=== PATIENT | male | born 1960 | race Two or more races ===

== ENCOUNTER 2020-09-29 18:57 | Inpatient (IN) | payer MEDICAID, OTHER ==
[~2020-09-29] VITALS: Ht 182.9 cm; Wt 74.4 kg
[2020-09-29] MEDS ORDERED: ASPirin 81 mg TAB PO ONE (19:15)
[2020-09-29 19:43] LABS: Basophils # (auto) 0.1 10 ^3/uL (0-0.2); Basophils % (auto) 0.7 % (0.0-2.0); Eosinophils # (auto) 0 10 ^3/uL (0-0.8); Eosinophils % (auto) 0.1 % (0.0-7.0); Hematocrit 46.2 % (41.0-53.0); Hemoglobin 16.5 g/dL (13.5-17.5); Lymphocytes # (auto) 1.4 10 ^3/uL (0.4-5.4); Mean Corpuscular Hgb Conc. 35.6 g/dL (32.0-36.0); Mean Corpuscular Volume 89.8 fL (80.0-100.0); Monocytes # (auto) 0.6 10 ^3/uL (0-1.3); Monocytes % (auto) 5.8 % (0.0-12.0); Neutrophils # (auto) 8.4 10 ^3/uL (1.6-8.6); Neutrophils % (auto) 80.4 % (37.0-80.0); Nucleated Red Blood Cells % 2.5 %; Platelet Count (auto) 205 10^3/uL (140-450); Red Blood Cells 5.14 10^6/uL (4.5-5.90); Red Cell Distribution Width 12.9 % (11.8-14.3); White Blood Cell 10.5 10^3/uL (4.4-10.8)
[2020-09-29] MEDS ORDERED: IOHEXOL 300 MG/ML 100ML BOTTLE IJ ONE (19:54)
[2020-09-29 19:59] LABS: Albumin 3.8 g/dL (3.4-5.0); Anion Gap 13 (5-15); Blood Urea Nitrogen 15 mg/dL (7-18); Calcium 9.4 mg/dL (8.5-10.1); Carbon Dioxide 23 mmol/L (21-32); Chloride 96 mmol/L (98-107); Glucose 368 mg/dL (74-106); Potassium 3.6 mmol/L (3.5-5.1); Sodium 132 mmol/L (136-145)
[2020-09-29 20:07] LABS: Alanine Aminotransferase 63 U/L (16-61); Alkaline Phosphatase 85 U/L (45-117); Aspartate Aminotransferase 28 U/L (15-37); BUN/Creatinine Ratio 17.9; Bilirubin, Total 0.7 mg/dL (0.2-1.0); GFR African American 119 mL/min; GFR Non-African American 99 mL/min
[2020-09-29 20:36] LABS: Partial Thromboplastin Time 28.9 sec (23.0-31.2)
[2020-09-29] MEDS ORDERED: ONDANSETRON HCL 4 MG/2 ML VIAL IV PRN (22:00)
[2020-09-29] MEDS ORDERED: TEMAZEPAM 15 MG CAP PO PRN (22:00)
[2020-09-29] MEDS ORDERED: hydrALAZINE HCL 20 MG/ML VL IV ONE (22:00)
[2020-09-29] MEDS ORDERED: DEXTROSE (50%) 50ML SYRG IV PRN (22:00)
[2020-09-29] MEDS ORDERED: cloNIDine HCL 0.1 MG TAB PO PRN (22:00)
[2020-09-29] MEDS ORDERED: MORPHINE SULF INJ 2 MG/ML SYRINGE 1ML IV PRN (22:00)
[2020-09-29] MEDS ORDERED: NITROGLYCERIN 0.4 MG SL TAB SL PRN (22:00)
[2020-09-29] MEDS: FAMOTIDINE 20 MG TAB PO SCH (22:32)
[2020-09-29] MEDS: ATORVASTATIN 20 MG TAB PO SCH (22:33)
[2020-09-29] MEDS: ACETAMINOPHEN 325 MG TAB PO PRN (23:46)
[2020-09-30] MEDS: ACCU-CHEK COMFORT CURVE STRIP VI SCH ×6 (00:19→20:17)
[2020-09-30] MEDS: InsuLIN REG 1unit/0.01ml Soln (100units/ml) SC SCH ×6 (00:22→20:16)
[2020-09-30 04:43] VITALS: BP 148/73
[2020-09-30] MEDS ORDERED: HYDROcodone-ACET 5/325MG TAB PO ONE (06:15)
[2020-09-30 06:30] LABS: Potassium 3.6 mmol/L (3.5-5.1)
[2020-09-30 06:34] LABS: BUN/Creatinine Ratio 19.4; Calcium 8.8 mg/dL (8.5-10.1)
[2020-09-30 06:36] LABS: Basophils # (auto) 0 10 ^3/uL (0-0.2); Basophils % (auto) 0.3 % (0.0-2.0); Eosinophils # (auto) 0 10 ^3/uL (0-0.8); Hematocrit 44.3 % (41.0-53.0); Hemoglobin 15.5 g/dL (13.5-17.5); Lymphocytes # (auto) 1.3 10 ^3/uL (0.4-5.4); Lymphocytes % (auto) 11.1 % (10.0-50.0); Mean Corpuscular Hemoglobin 31.4 pg (28.0-32.0); Mean Corpuscular Volume 89.7 fL (80.0-100.0); Monocytes # (auto) 0.7 10 ^3/uL (0-1.3); Monocytes % (auto) 5.7 % (0.0-12.0); Neutrophils # (auto) 9.7 10 ^3/uL (1.6-8.6); Neutrophils % (auto) 82.9 % (37.0-80.0); Nucleated Red Blood Cells % 0.2 %; Platelet Count (auto) 204 10^3/uL (140-450); Red Blood Cells 4.94 10^6/uL (4.5-5.90); Red Cell Distribution Width 12.7 % (11.8-14.3); White Blood Cell 11.7 10^3/uL (4.4-10.8)
[2020-09-30] MEDS: amLODIPine BESYLATE 5 MG TAB PO SCH (09:25)
[2020-09-30] MEDS: FAMOTIDINE 20 MG TAB PO SCH ×2 (09:25→21:22)
[2020-09-30] MEDS: ASPirin 81 mg TAB PO SCH (09:25)
[2020-09-30 09:46] VITALS: BP 155/90
[2020-09-30] MEDS ORDERED: ENOXAPARIN SOD 40 MG/0.4 ML SYRINGE SC SCH (10:00)
[2020-09-30] MEDS: ACETAMINOPHEN 325 MG TAB PO PRN ×2 (11:47→18:47)
[2020-09-30 13:00] VITALS: BP 149/94
[2020-09-30] MEDS ORDERED: MULTIPLE VITAMINS W/ MINERALS TAB PO ONE (13:15)
[2020-09-30] MEDS ORDERED: THIAMINE HCL 100 MG TAB PO ONE (13:15)
[2020-09-30] MEDS ORDERED: LISINOPRIL 10 MG TAB PO ONE (13:15)
[2020-09-30 17:00] VITALS: BP 155/87
[2020-09-30] MEDS: ATORVASTATIN 20 MG TAB PO SCH (21:21)
[2020-09-30 21:29] VITALS: BP 136/84
[2020-10-01] MEDS: InsuLIN REG 1unit/0.01ml Soln (100units/ml) SC SCH ×4 (00:41→12:09)
[2020-10-01] MEDS: ACETAMINOPHEN 325 MG TAB PO PRN (00:42)
[2020-10-01] MEDS: ACCU-CHEK COMFORT CURVE STRIP VI SCH ×4 (04:00→12:06)
[2020-10-01 05:37] LABS: Basophils # (auto) 0 10 ^3/uL (0-0.2); Basophils % (auto) 0.6 % (0.0-2.0); Eosinophils # (auto) 0 10 ^3/uL (0-0.8); Eosinophils % (auto) 0.4 % (0.0-7.0); Hematocrit 45.5 % (41.0-53.0); Hemoglobin 16.6 g/dL (13.5-17.5); Lymphocytes # (auto) 1.8 10 ^3/uL (0.4-5.4); Mean Corpuscular Hemoglobin 32.7 pg (28.0-32.0); Mean Corpuscular Hgb Conc. 36.4 g/dL (32.0-36.0); Mean Corpuscular Volume 89.8 fL (80.0-100.0); Monocytes # (auto) 0.8 10 ^3/uL (0-1.3); Monocytes % (auto) 10.3 % (0.0-12.0); Neutrophils # (auto) 4.8 10 ^3/uL (1.6-8.6); Neutrophils % (auto) 64.7 % (37.0-80.0); Nucleated Red Blood Cells % 0.2 %; Platelet Count (auto) 200 10^3/uL (140-450); Red Blood Cells 5.06 10^6/uL (4.5-5.90); Red Cell Distribution Width 12.7 % (11.8-14.3); White Blood Cell 7.5 10^3/uL (4.4-10.8)
[2020-10-01 05:48] LABS: Potassium 3.4 mmol/L (3.5-5.1)
[2020-10-01 05:52] VITALS: BP 126/76
[2020-10-01 05:59] LABS: BUN/Creatinine Ratio 15.6; Calcium 8.5 mg/dL (8.5-10.1)
[2020-10-01 07:24] LABS: Urine Bacteria FEW /hpf (None Seen); Urine Blood Negative /uL (Negative); Urine Mucus FEW (None Seen); Urine Specific Gravity 1.016 (1.001-1.035); Urine WBC 4 /hpf (0 - 3)
[2020-10-01 08:28] VITALS: BP 129/94
[2020-10-01] MEDS ORDERED: THIAMINE HCL 100 MG TAB PO SCH (10:00)
[2020-10-01] MEDS ORDERED: MULTIPLE VITAMINS W/ MINERALS TAB PO SCH (10:00)
[2020-10-01] MEDS ORDERED: LISINOPRIL 10 MG TAB PO SCH (10:00)
[2020-10-01] MEDS: ASPirin 81 mg TAB PO SCH (10:26)
[2020-10-01] MEDS: amLODIPine BESYLATE 5 MG TAB PO SCH (10:31)
[2020-10-01] MEDS: FAMOTIDINE 20 MG TAB PO SCH (10:32)
[2020-10-01] MEDS ORDERED: POTASSIUM CHL 20 Meq TABLET PO ONE (11:45)
[2020-10-01 13:11] VITALS: BP 129/94
== END 2020-10-01 14:06 | disposition home or self-care (01) | DRG 199 ==
LOC: ER 18:57 → TELE 21:46 → TELE-EAST 23:13 → TELE-WESTW 09-30 10:44
PROVIDERS: ADMIT Nurse Practitioner; ATTEND Internal Medicine
DX: I16.0 Hypertensive urgency (principal); E11.65 Type 2 diabetes mellitus with hyperglycemia; R07.89 Other chest pain; E11.42 Type 2 diabetes mellitus with diabetic polyneuropathy; Z20.822 Contact with and (suspected) exposure to COVID-19; F10.10 Alcohol abuse, uncomplicated; Z79.84 Long term (current) use of oral hypoglycemic drugs; Z79.899 Other long term (current) drug therapy; Z83.3 Family history of diabetes mellitus; Z91.14 Patient's other noncompliance with medication regimen
CPT/HCPCS: 36415; 71045; 71260; 74177; 80048; 80053; 80061; 81001; 82607; 82962; 83036; 83735; 83880; 84484; 85025; 85379; 85610; 85730; 87426; 93005; 93306; 96374; G0378; J1815